=== PATIENT | female | born 2000 | race African-American/Black ===

== ENCOUNTER 2024-11-13 20:26 | Emergency (ER) | payer SELFPAY ==
[2024-11-13 21:41] LABS: APPEARANCE,URINE SLT CLOUDY; GLUCOSE,URINE NEGATIVE (NEGATIVE); OCCULT BLOOD,URINE NEGATIVE (NEGATIVE)
[2024-11-13 21:48] LABS: EPITHELIAL CELLS,URINE FEW (NONE-FEW)
[2024-11-13] MEDS: Nitrofurantoin Monohydrate/Macrocrystalline 100 MG Cap PO ONE (22:04)
== END 2024-11-13 22:07 | disposition home or self-care (01) ==
LOC: MW.ED 20:26
DX: N39.0 Urinary tract infection, site not specified (principal); Z79.899 Other long term (current) drug therapy
CPT/HCPCS: 81001; 81025; 87086; 99283; A9270